=== PATIENT | female | born 1930 | race Two or more races ===

== ENCOUNTER 2017-12-26 05:52 | Inpatient (IN) | payer MEDICAID, MEDICARE ==
[~2017-12-26] VITALS: Ht 149.9 cm; Wt 74.8 kg
[2017-12-26 05:55] VITALS: BP 131/60
[2017-12-26] MEDS ORDERED: ASPIRIN EC81 MG ORAL (06:14)
[2017-12-26] MEDS ORDERED: EZETIMIBE10 MG PO (06:14)
[2017-12-26] MEDS ORDERED: OYSCO 500+D TA1 EAC1 PO (06:14)
[2017-12-26] MEDS ORDERED: HYDROCHLOROTHIA25 MG ORAL (06:14)
[2017-12-26] MEDS ORDERED: LOSARTAN POTASS50 MG ORAL (06:14)
[2017-12-26] MEDS ORDERED: METFORMIN HCL500 M1 ORAL (06:14)
--- NOTE | 2017-12-26 06:15 | Emergency Room Report ---
History of Present Illness General Chief Complaint: Chest Pain Source: Patient, EMS (Kay Parkinson M.D.) Present Illness HPI 87-year-old female, history of hypertension, history of CVA, p/w chest pain for one day. Chest pain started while sleeping. Localized to substernal area, no radiation to back or other areas, sharp in nature. EMS gave her one spray of nitroglycerin, upon arrival to the emergency room, patient states that chest pain has lessened. + SOB. Denies palpitations, diaphoresis, n/v. Denies fever, chills, cough, abd pain. Unknown last stress test (Kay Parkinson M.D.) Allergies: Coded Allergies: No Known Allergies (Unverified , 12/26/17) Patient History Past Medical History: see triage record Past Surgical History: none Pertinent Family History: none Last Menstrual Period: Na Now: No Reviewed Nursing Documentation: PMH: Agreed, PSxH: Agreed (aKy Parkinson M.D. ) Nursing Documentation-PMH Hx Hypertension: Yes (Kay Parkinson M.D.) Review of Systems All Other Systems: negative except mentioned in HPI (Kay Parkinson M.D.) Physical Exam Vital Signs Date Time Temp Pulse Resp B/P (MAP) Pulse Ox O2 Delivery O2 Flow Rate FiO2 12/26/17 05:58 97.4 88 18 123/61 99 Room Air 97.3 Sp02 EP Interpretation: reviewed, normal General Appearance: alert, moderate distress Head: normocephalic, atraumatic Eyes: bilateral eye normal inspection, bilateral eye PERRL, bilateral eye EOMI ENT: normal ENT inspection, normal pharynx, normal voice, moist mucus membranes Neck: normal inspection, full range of motion, supple Respiratory: normal inspection, lungs clear, normal breath sounds, no respiratory distress, no retraction, no wheezing, speaking full sentences, chest symmetrical Cardiovascular #1: normal inspection, regular rate, rhythm, normal capillary refill Cardiovascular #2: 2+ radial (R), 2+ radial (L) Gastrointestinal: normal inspection, non tender, soft, non-distended, no guarding Musculoskeletal: normal inspection, back normal, normal range of motion, non- tender Neurologic: normal inspection, alert, oriented x3, responsive, motor strength/ tone normal, sensory intact, normal gait, speech normal Psychiatric: other - poor historian Skin: normal inspection, normal color, no rash, warm/dry, well hydrated, normal turgor (Kay Parkinson M.D.) Medical Decision Making Diagnostic Impression: Primary Impression: ACS (acute coronary syndrome) ER Course 87-year-old female with chest pain DDX: ACS vs. CHF vs. pneumonia vs. gastritis/GERD vs. pneumothorax Plan: IV access, obtain labs including troponin, EKG, CXR ASA ER course: Patient was treated with ASA. Patient has remained on a monitor, HD stable, chest pain improved. Disposition: Signed out to Dr Arciniega 87 yo F with cp -pending labs -anticipate admission Please note that this Emergency Department Report was dictated using Eniramhandicapped teacher technology software, occasionally this can lead to erroneous entry secondary to interpretation by the dictation equipment. EKG Diagnostic Results EP Interpretation: Yes Rate: normal Rhythm: NSR ST Segments: Q waves inferior leads ASA given to patient: Yes Rhythm Strip EP Interpretation: Yes Rate: 80 Rhythm: NSR, no PVCs, no ectopy (Kay Parkinson M.D.) ER Course Hospital Course 87-year-old female presents ED complaining of chest pain. Differential diagnoses include: CA/unstable angina, contusion, muscle strain, PTX, rib fracture Clinical course patient initialy seen and evaluated by Dr Parkinson; please see her note for full history and physical labs reviewed- no leukocytosis, hb/hct stable, electrolytes ok, trop negative EKG - NSR, no acute ischemic changes interpreted by me Chest x-ray- no acute process given asa in ED Case discussed with Dr. Hurtado and he agreed to accept the patient to his service for further care and support I. I feel this is a highly complex case requiring extensive working including EKG/Rhythm strip, Xray/CT/US, Blood/urine lab work, repeat exams while in ED, and administration of strong opiates/narcotics for pain control, admission to hospital or close patient follow up. Diagnosis - ACS admitted to telemetry in serious condition Labs Test 12/26/17 06:00 12/26/17 06:53 White Blood Count 6.2 K/UL (4.8-10.8) Red Blood Count 4.19 M/UL (4.20-5.40) Hemoglobin 13.7 G/DL (12.0-16.0) Hematocrit 38.8 % (37.0-47.0) Mean Corpuscular Volume 93 FL (80-99) Mean Corpuscular Hemoglobin 32.6 PG (27.0-31.0) Mean Corpuscular Hemoglobin Concent 35.2 G/DL (32.0-36.0) Red Cell Distribution Width 10.7 % (11.6-14.8) Platelet Count 162 K/UL (150-450) Mean Platelet Volume 9.1 FL (6.5-10.1) Neutrophils (%) (Auto) 53.5 % (45.0-75.0) Lymphocytes (%) (Auto) 36.9 % (20.0-45.0) Monocytes (%) (Auto) 6.1 % (1.0-10.0) Eosinophils (%) (Auto) 2.4 % (0.0-3.0) Basophils (%) (Auto) 1.1 % (0.0-2.0) Sodium Level 131 MMOL/L (136-145) Potassium Level 4.1 MMOL/L (3.5-5.1) Chloride Level 95 MMOL/L (98-107) Carbon Dioxide Level 27 MMOL/L (21-32) Anion Gap 9 mmol/L (5-15) Blood Urea Nitrogen 16 mg/dL (7-18) Creatinine 0.8 MG/DL (0.55-1.30) Estimat Glomerular Filtration Rate mL/min (>60) Glucose Level 127 MG/DL (74-106) Calcium Level 9.9 MG/DL (8.5-10.1) Total Bilirubin 0.8 MG/DL (0.2-1.0) Aspartate Amino Transf (AST/SGOT) 31 U/L (15-37) Alanine Aminotransferase (ALT/SGPT) 48 U/L (12-78) Alkaline Phosphatase 90 U/L (46-116) Troponin I 0.000 ng/mL (0.000-0.056) Pro-B-Type Natriuretic Peptide 64 pg/mL (0-125) Total Protein 7.5 G/DL (6.4-8.2) Albumin 3.5 G/DL (3.4-5.0) Globulin 4.0 g/dL Albumin/Globulin Ratio 0.9 (1.0-2.7) Urine Color Pale yellow Urine Appearance Clear Urine pH 6.5 (4.5-8.0) Urine Specific [place] 1.010 (1.005-1.035) Urine Protein Negative (NEGATIVE) Urine Glucose (UA) Negative (NEGATIVE) Urine Ketones Negative (NEGATIVE) Urine Occult Blood Negative (NEGATIVE) Urine Nitrite Negative (NEGATIVE) Urine Bilirubin Negative (NEGATIVE) Urine Urobilinogen Normal MG/DL (0.0-1.0) Urine Leukocyte Esterase 1+ (NEGATIVE) Urine RBC 0-2 /HPF (0 - 2) Urine WBC 2-4 /HPF (0 - 2) Urine Squamous Epithelial Cells Few /LPF (NONE/OCC) Urine Bacteria Occasional /HPF (NONE) (AP ARCINIEGA M.D.) EKG Diagnostic Results Rate: normal Rhythm: NSR ST Segments: no acute changes ASA given to the pt in ED: Yes (AP ARCINIEGA M.D.) Rhythm Strip Diag. Results EP Interpretation: yes Rhythm: NSR, no PVC's, no ectopy (AP ARCINIEGA M.D.) Chest X-Ray Diagnostic Results Chest X-Ray Diagnostic Results : Chest X-Ray Ordered: Yes # of Views/Limited/Complete: 1 View Indication: Chest Pain EP Interpretation: Yes Interpretation: no consolidation, no effusion, no pneumothorax, no acute cardiopulmonary disease Impression: No acute disease Electronically Signed by: Electronically signed by Ap Arciniega MD (AP ARCINIEGA M.D.) Last Vital Signs Date Time Temp Pulse Resp B/P (MAP) Pulse Ox O2 Delivery O2 Flow Rate FiO2 12/26/17 05:58 97.4 88 18 123/61 99 Room Air 97.3 (Kay Parkinson M.D.) Status: improved (AP ARCINIEGA M.D.) Disposition: ADMITTED INPATIENT Condition: Serious Kay Parkinson M.D. Dec 26, 2017 06:15 AP ARCINIEGA M.D. Dec 26, 2017 08:14
[2017-12-26 06:22] LABS: BASOPHILS % (AUTO) 1.1 % (0.0-2.0); EOSINOPHILS % (AUTO) 2.4 % (0.0-3.0); HEMATOCRIT 38.8 % (37.0-47.0); HEMOGLOBIN 13.7 G/DL (12.0-16.0); LYMPHOCYTES % (AUTO) 36.9 % (20.0-45.0); MEAN CORPUSCULAR VOLUME 93 FL (80-99); MONOCYTES % (AUTO) 6.1 % (1.0-10.0); NEUTROPHILS % (AUTO) 53.5 % (45.0-75.0); PLATELET COUNT 162 K/UL (150-450); RED BLOOD COUNT 4.19 M/UL (4.20-5.40); RED CELL DISTRIBUTION WIDTH 10.7 % (11.6-14.8); WHITE BLOOD COUNT 6.2 K/UL (4.8-10.8)
[2017-12-26 06:32] LABS: ANION GAP 9 mmol/L (5-15); BLOOD UREA NITROGEN 16 mg/dL (7-18); CALCIUM 9.9 MG/DL (8.5-10.1); CARBON DIOXIDE 27 MMOL/L (21-32); CHLORIDE 95 MMOL/L (98-107); CREATININE 0.8 MG/DL (0.55-1.30); POTASSIUM 4.1 MMOL/L (3.5-5.1); SODIUM 131 MMOL/L (136-145)
[2017-12-26 06:43] LABS: ALANINE AMINOTRANSFERASE 48 U/L (12-78); ALBUMIN 3.5 G/DL (3.4-5.0); ALBUMIN/GLOBULIN RATIO 0.9 (1.0-2.7); ALKALINE PHOSPHATASE 90 U/L (46-116); ASPARTATE AMINO TRANSFERASE 31 U/L (15-37); BILIRUBIN,TOTAL 0.8 MG/DL (0.2-1.0)
[2017-12-26 07:15] VITALS: BP 116/67
[2017-12-26 07:32] LABS: APPEARANCE,URINE CLEAR; BILIRUBIN, URINE NEGATIVE (NEGATIVE); COLOR,URINE PALE YELLOW; GLUCOSE, URINE (UA) NEGATIVE (NEGATIVE); KETONES,URINE NEGATIVE (NEGATIVE); LEUKOCYTE ESTERASE ,URINE 1+ (NEGATIVE); NITRITE,URINE NEGATIVE (NEGATIVE); PH,URINE 6.5 (4.5-8.0); PROTEIN,URINE NEGATIVE (NEGATIVE); UROBILINOGEN,URINE NORMAL MG/DL (0.0-1.0)
[2017-12-26] MEDS ORDERED: Enalaprilat 2.5mg/2ml Inj IV PRN (10:15)
[2017-12-26] MEDS ORDERED: Albuterol/Ipratropium 3ml neb HHN PRN (10:15)
[2017-12-26] MEDS ORDERED: Nitroglycerin Subl 0.4mg tab SL PRN (10:15)
[2017-12-26] MEDS ORDERED: Morphine Sulfate 2mg/ml Inj IVP PRN (10:15)
[2017-12-26] MEDS ORDERED: Miralax 17gm pkt ORAL PRN (10:15)
[2017-12-26] MEDS ORDERED: dilTIAZem HCl 25mg/5ml Inj IV PRN (10:15)
[2017-12-26] MEDS ORDERED: Ketorolac 30mg Inj IV PRN (10:15)
--- NOTE | 2017-12-26 10:23 | Diagnostic Imaging Report ---
Indication: Chest pain Technique: One view of the chest Comparison: none Findings: Lungs and pleural spaces are clear. The heart is upper limits of normal in size. Aorta is elongated tortuous and calcified. The mediastinum is unremarkable Impression: No acute process
[2017-12-26] MEDS: NovoLOG Insulin Flexpen SUBQ SCH ×3 (11:30→21:00)
--- NOTE | 2017-12-26 13:09 | Cardiology Progress Note ---
Assessment/Plan Assessment/Plan The patient is seen and examined, full consult note will be dictated shortly. Objective Last 24 Hour Vital Signs Date Time Temp Pulse Resp B/P (MAP) Pulse Ox O2 Delivery O2 Flow Rate FiO2 12/26/17 09:40 98.0 70 13 115/57 97 Room Air 98.1 12/26/17 07:15 54 12 Room Air 12/26/17 07:15 98.1 54 12 116/67 100 Room Air 98.1 12/26/17 05:58 97.4 88 18 123/61 99 Room Air 97.3 12/26/17 05:55 74 16 Room Air 12/26/17 05:55 97.4 74 16 131/60 96 Room Air 97.4 Laboratory Tests Test 12/26/17 06:00 12/26/17 06:53 White Blood Count 6.2 K/UL (4.8-10.8) Red Blood Count 4.19 M/UL (4.20-5.40) L Hemoglobin 13.7 G/DL (12.0-16.0) Hematocrit 38.8 % (37.0-47.0) Mean Corpuscular Volume 93 FL (80-99) Mean Corpuscular Hemoglobin 32.6 PG (27.0-31.0) H Mean Corpuscular Hemoglobin Concent 35.2 G/DL (32.0-36.0) Red Cell Distribution Width 10.7 % (11.6-14.8) L Platelet Count 162 K/UL (150-450) Mean Platelet Volume 9.1 FL (6.5-10.1) Neutrophils (%) (Auto) 53.5 % (45.0-75.0) Lymphocytes (%) (Auto) 36.9 % (20.0-45.0) Monocytes (%) (Auto) 6.1 % (1.0-10.0) Eosinophils (%) (Auto) 2.4 % (0.0-3.0) Basophils (%) (Auto) 1.1 % (0.0-2.0) Sodium Level 131 MMOL/L (136-145) L Potassium Level 4.1 MMOL/L (3.5-5.1) Chloride Level 95 MMOL/L (98-107) L Carbon Dioxide Level 27 MMOL/L (21-32) Anion Gap 9 mmol/L (5-15) Blood Urea Nitrogen 16 mg/dL (7-18) Creatinine 0.8 MG/DL (0.55-1.30) Estimat Glomerular Filtration Rate mL/min (>60) Glucose Level 127 MG/DL (74-106) H Calcium Level 9.9 MG/DL (8.5-10.1) Total Bilirubin 0.8 MG/DL (0.2-1.0) Aspartate Amino Transf (AST/SGOT) 31 U/L (15-37) Alanine Aminotransferase (ALT/SGPT) 48 U/L (12-78) Alkaline Phosphatase 90 U/L (46-116) Troponin I 0.000 ng/mL (0.000-0.056) Pro-B-Type Natriuretic Peptide 64 pg/mL (0-125) Total Protein 7.5 G/DL (6.4-8.2) Albumin 3.5 G/DL (3.4-5.0) Globulin 4.0 g/dL Albumin/Globulin Ratio 0.9 (1.0-2.7) L Urine Color Pale yellow Urine Appearance Clear Urine pH 6.5 (4.5-8.0) Urine Specific [place] 1.010 (1.005-1.035) Urine Protein Negative (NEGATIVE) Urine Glucose (UA) Negative (NEGATIVE) Urine Ketones Negative (NEGATIVE) Urine Occult Blood Negative (NEGATIVE) Urine Nitrite Negative (NEGATIVE) Urine Bilirubin Negative (NEGATIVE) Urine Urobilinogen Normal MG/DL (0.0-1.0) Urine Leukocyte Esterase 1+ (NEGATIVE) H Urine RBC 0-2 /HPF (0 - 2) Urine WBC 2-4 /HPF (0 - 2) Urine Squamous Epithelial Cells Few /LPF (NONE/OCC) Urine Bacteria Occasional /HPF (NONE) ZION HALLMAN Dec 26, 2017 13:09
--- NOTE | 2017-12-26 13:27 | Consultation ---
History of Present Illness General Date patient seen: Dec 26, 2017 Chief Complaint: Chest Pain Present Illness HPI 87-year-old female with history of DM, hypertension, CVA, brought in by paramedics with CC of chest pain for one day. Chest pain started while sleeping. Localized to substernal area, no radiation to back or other areas, sharp in nature. EMS gave her one spray of nitroglycerin, upon arrival to the emergency room, patient states that chest pain has lessened. she was still c/o SOB on arrival. She is admitted to telemetry for further management. Allergies: Coded Allergies: No Known Allergies (Unverified , 12/26/17) Medication History Scheduled Aspirin Ec* (Aspirin Ec*), 81 MG ORAL DAILY, (Reported) Hydrochlorothiazide* (Hydrochlorothiazide*), 25 MG ORAL DAILY, (Reported) Losartan Potassium* (Losartan Potassium*), 50 MG ORAL DAILY, (Reported) Metformin Hcl* (Metformin Hcl*), 500 MG ORAL TWICE A DAY, (Reported) Miscellaneous Medications Calcium Carbonate/Vitamin D3 ([place] 500+D Tablet), 1 EACH PO, (Reported) Ezetimibe (Ezetimibe), 10 MG PO, (Reported) Patient History Healthcare decision maker Janet Saleem Resuscitation status Full Code Advanced Directive on File Past Medical/Surgical History Past Medical/Surgical History: (1) Diabetes mellitus (2) HTN (hypertension) Review of Systems All Other Systems: negative except mentioned in HPI Physical Exam General Appearance: WD/WN, no apparent distress Lines, tubes and drains: peripheral HEENT: normocephalic, atraumatic Neck: non-tender, supple Respiratory/Chest: chest wall non-tender, lungs clear Cardiovascular/Chest: normal peripheral pulses, normal rate Abdomen: normal bowel sounds, non tender Genitourinary/Rectal: normal genital exam Skin Exam: normal pigmentation Last 24 Hour Vital Signs Date Time Temp Pulse Resp B/P (MAP) Pulse Ox O2 Delivery O2 Flow Rate FiO2 12/26/17 09:40 98.0 70 13 115/57 97 Room Air 98.1 12/26/17 07:15 54 12 Room Air 12/26/17 07:15 98.1 54 12 116/67 100 Room Air 98.1 12/26/17 05:58 97.4 88 18 123/61 99 Room Air 97.3 12/26/17 05:55 74 16 Room Air 12/26/17 05:55 97.4 74 16 131/60 96 Room Air 97.4 Laboratory Tests Test 12/26/17 06:00 12/26/17 06:53 White Blood Count 6.2 K/UL (4.8-10.8) Red Blood Count 4.19 M/UL (4.20-5.40) L Hemoglobin 13.7 G/DL (12.0-16.0) Hematocrit 38.8 % (37.0-47.0) Mean Corpuscular Volume 93 FL (80-99) Mean Corpuscular Hemoglobin 32.6 PG (27.0-31.0) H Mean Corpuscular Hemoglobin Concent 35.2 G/DL (32.0-36.0) Red Cell Distribution Width 10.7 % (11.6-14.8) L Platelet Count 162 K/UL (150-450) Mean Platelet Volume 9.1 FL (6.5-10.1) Neutrophils (%) (Auto) 53.5 % (45.0-75.0) Lymphocytes (%) (Auto) 36.9 % (20.0-45.0) Monocytes (%) (Auto) 6.1 % (1.0-10.0) Eosinophils (%) (Auto) 2.4 % (0.0-3.0) Basophils (%) (Auto) 1.1 % (0.0-2.0) Sodium Level 131 MMOL/L (136-145) L Potassium Level 4.1 MMOL/L (3.5-5.1) Chloride Level 95 MMOL/L (98-107) L Carbon Dioxide Level 27 MMOL/L (21-32) Anion Gap 9 mmol/L (5-15) Blood Urea Nitrogen 16 mg/dL (7-18) Creatinine 0.8 MG/DL (0.55-1.30) Estimat Glomerular Filtration Rate mL/min (>60) Glucose Level 127 MG/DL (74-106) H Calcium Level 9.9 MG/DL (8.5-10.1) Total Bilirubin 0.8 MG/DL (0.2-1.0) Aspartate Amino Transf (AST/SGOT) 31 U/L (15-37) Alanine Aminotransferase (ALT/SGPT) 48 U/L (12-78) Alkaline Phosphatase 90 U/L (46-116) Troponin I 0.000 ng/mL (0.000-0.056) Pro-B-Type Natriuretic Peptide 64 pg/mL (0-125) Total Protein 7.5 G/DL (6.4-8.2) Albumin 3.5 G/DL (3.4-5.0) Globulin 4.0 g/dL Albumin/Globulin Ratio 0.9 (1.0-2.7) L Urine Color Pale yellow Urine Appearance Clear Urine pH 6.5 (4.5-8.0) Urine Specific [place] 1.010 (1.005-1.035) Urine Protein Negative (NEGATIVE) Urine Glucose (UA) Negative (NEGATIVE) Urine Ketones Negative (NEGATIVE) Urine Occult Blood Negative (NEGATIVE) Urine Nitrite Negative (NEGATIVE) Urine Bilirubin Negative (NEGATIVE) Urine Urobilinogen Normal MG/DL (0.0-1.0) Urine Leukocyte Esterase 1+ (NEGATIVE) H Urine RBC 0-2 /HPF (0 - 2) Urine WBC 2-4 /HPF (0 - 2) Urine Squamous Epithelial Cells Few /LPF (NONE/OCC) Urine Bacteria Occasional /HPF (NONE) Height (Feet): 4 Height (Inches): 11.00 Weight (Pounds): 165 Medications Current Medications Medications (Trade) Dose Ordered Sig/Bella Route PRN Reason Start Time Stop Time Status Last Admin Dose Admin Acetaminophen (Tylenol) 650 mg Q4H PRN ORAL FEVER 12/26/17 10:15 01/25/18 10:14 Albuterol/ Ipratropium (Albuterol/ Ipratropium) 3 ml EVERY 4 HOURS PRN HHN Shortness of Breath 12/26/17 10:15 12/31/17 10:14 Aspirin (ASA) 162 mg DAILY ORAL 12/27/17 09:00 01/26/18 08:59 Dextrose (Dextrose 50%) STAT PRN IV Hypoglycemia 12/26/17 10:15 01/25/18 10:14 Diltiazem HCl (Cardizem) 10 mg EVERY HOUR PRN IV heart rate more than 120, 12/26/17 10:15 01/25/18 10:14 Enalaprilat (Vasotec) 2.5 mg EVERY 6 HOURS PRN IV sbp more than 160 12/26/17 10:15 01/25/18 10:14 Heparin Sodium (Porcine) (Heparin 5000 units/ml) 5,000 units EVERY 8 HOURS SUBQ 12/26/17 14:00 01/25/18 13:59 Insulin Aspart (NovoLOG) BEFORE MEALS AND HS SUBQ 12/26/17 11:30 01/25/18 11:29 Ketorolac Tromethamine (Toradol 30mg) 30 mg Q6HR PRN IV moderate pain ( 4-6) 12/26/17 10:15 12/31/17 10:14 Losartan Potassium (Cozaar) 50 mg DAILY ORAL 12/27/17 09:00 01/26/18 08:59 Morphine Sulfate (Morphine Sulfate) 2 mg EVERY 4 HOURS PRN IVP severe Pain (Pain Scale 7-10) 12/26/17 10:15 01/02/18 10:14 Nitroglycerin (Ntg) 0.4 mg Q5M PRN SL Prn Chest Pain 12/26/17 10:15 01/25/18 10:14 Ondansetron HCl (Zofran) 4 mg Q6H PRN IVP Nausea & Vomiting 12/26/17 10:15 01/25/18 10:14 Pantoprazole (Protonix) 40 mg DAILY ORAL 12/27/17 09:00 01/26/18 08:59 Polyethylene Glycol (Miralax) 17 gm DAILYPRN PRN ORAL Constipation 12/26/17 10:15 01/25/18 10:14 Temazepam (Restoril) 15 mg HSPRN PRN ORAL Insomnia 12/26/17 10:15 01/02/18 10:14 Assessment/Plan Problem List: (1) ACS (acute coronary syndrome) ICD Codes: I24.9 - Acute ischemic heart disease, unspecified SNOMED: 122185636 (2) HTN (hypertension) ICD Codes: I10 - Essential (primary) hypertension SNOMED: 85714429 (3) Diabetes mellitus ICD Codes: E11.9 - Type 2 diabetes mellitus without complications SNOMED: 45524067 Assessment/Plan serial ekg, troponin, echo cardio evaluation my need GI evaluation for dysphagia sliding scale diabetic diet. monitor BP CALVIN TAM Dec 26, 2017 13:27
[2017-12-26] MEDS: Heparin 5000 units/ml inj SUBQ SCH ×2 (14:40→21:11)
--- NOTE | 2017-12-26 17:51 | Cardiac Electrophysiology PN ---
Subjective Subjective EP consult dictated [id number] Objective Last 24 Hour Vital Signs Date Time Temp Pulse Resp B/P (MAP) Pulse Ox O2 Delivery O2 Flow Rate FiO2 12/26/17 12:00 76 12/26/17 12:00 76 12/26/17 09:40 98.0 70 13 115/57 97 Room Air 98.1 12/26/17 07:15 54 12 Room Air 12/26/17 07:15 98.1 54 12 116/67 100 Room Air 98.1 12/26/17 05:58 97.4 88 18 123/61 99 Room Air 97.3 12/26/17 05:55 74 16 Room Air 12/26/17 05:55 97.4 74 16 131/60 96 Room Air 97.4 Laboratory Tests Test 12/26/17 06:00 12/26/17 06:53 White Blood Count 6.2 K/UL (4.8-10.8) Red Blood Count 4.19 M/UL (4.20-5.40) L Hemoglobin 13.7 G/DL (12.0-16.0) Hematocrit 38.8 % (37.0-47.0) Mean Corpuscular Volume 93 FL (80-99) Mean Corpuscular Hemoglobin 32.6 PG (27.0-31.0) H Mean Corpuscular Hemoglobin Concent 35.2 G/DL (32.0-36.0) Red Cell Distribution Width 10.7 % (11.6-14.8) L Platelet Count 162 K/UL (150-450) Mean Platelet Volume 9.1 FL (6.5-10.1) Neutrophils (%) (Auto) 53.5 % (45.0-75.0) Lymphocytes (%) (Auto) 36.9 % (20.0-45.0) Monocytes (%) (Auto) 6.1 % (1.0-10.0) Eosinophils (%) (Auto) 2.4 % (0.0-3.0) Basophils (%) (Auto) 1.1 % (0.0-2.0) Sodium Level 131 MMOL/L (136-145) L Potassium Level 4.1 MMOL/L (3.5-5.1) Chloride Level 95 MMOL/L (98-107) L Carbon Dioxide Level 27 MMOL/L (21-32) Anion Gap 9 mmol/L (5-15) Blood Urea Nitrogen 16 mg/dL (7-18) Creatinine 0.8 MG/DL (0.55-1.30) Estimat Glomerular Filtration Rate mL/min (>60) Glucose Level 127 MG/DL (74-106) H Calcium Level 9.9 MG/DL (8.5-10.1) Total Bilirubin 0.8 MG/DL (0.2-1.0) Aspartate Amino Transf (AST/SGOT) 31 U/L (15-37) Alanine Aminotransferase (ALT/SGPT) 48 U/L (12-78) Alkaline Phosphatase 90 U/L (46-116) Troponin I 0.000 ng/mL (0.000-0.056) Pro-B-Type Natriuretic Peptide 64 pg/mL (0-125) Total Protein 7.5 G/DL (6.4-8.2) Albumin 3.5 G/DL (3.4-5.0) Globulin 4.0 g/dL Albumin/Globulin Ratio 0.9 (1.0-2.7) L Urine Color Pale yellow Urine Appearance Clear Urine pH 6.5 (4.5-8.0) Urine Specific [place] 1.010 (1.005-1.035) Urine Protein Negative (NEGATIVE) Urine Glucose (UA) Negative (NEGATIVE) Urine Ketones Negative (NEGATIVE) Urine Occult Blood Negative (NEGATIVE) Urine Nitrite Negative (NEGATIVE) Urine Bilirubin Negative (NEGATIVE) Urine Urobilinogen Normal MG/DL (0.0-1.0) Urine Leukocyte Esterase 1+ (NEGATIVE) H Urine RBC 0-2 /HPF (0 - 2) Urine WBC 2-4 /HPF (0 - 2) Urine Squamous Epithelial Cells Few /LPF (NONE/OCC) Urine Bacteria Occasional /HPF (NONE) ZION PELAEZ Dec 26, 2017 17:51
[2017-12-26 20:00] VITALS: BP 109/65
--- NOTE | 2017-12-26 20:02 | Consultation ---
DATE OF CONSULTATION: 12/26/2017 CARDIOLOGY CONSULTATION REFERRING PHYSICIAN: Glenn Hurtado D.O. REASON FOR CONSULTATION: Management of chest pain. HISTORY OF PRESENT ILLNESS: The patient is a very unfortunate 87-year-old female, who presents to the hospital with complaints of chest pain, which appears to be pleuritic in nature with deep inspiration just about a day. The patient's chest pain started while she was sleeping affecting mostly the left precordial area worse when she sits up. She has associated shortness of breath. Initial chest x-ray in this hospital showed no acute cardiopulmonary disease. Vital signs on arrival to the hospital, blood pressure 123/61 and heart rate of 88. 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 The patient was admitted to telemetry for further evaluation and management. I was called by Dr. Hurtado to see the patient in Cardiology consultation. PAST MEDICAL HISTORY: Hypertension and history of CVA. Also, history of diabetes mellitus. PAST SURGICAL HISTORY: None. MEDICATIONS: List of medication including aspirin 81 mg p.o. daily, calcium carbonate and vitamin D3 combination one tablet daily, ezetimibe 10 mg p.o. daily, hydrochlorothiazide 25 mg p.o. daily, losartan 50 mg p.o. daily, and metformin 500 mg twice a day. SOCIAL HISTORY: Denies any tobacco, alcohol or illicit drug use. FAMILY HISTORY: No premature coronary artery disease in first-degree relatives. REVIEW OF SYSTEMS: HEENT: Denies any headache, diplopia, or blurred vision. CONSTITUTIONAL: Denies any fever, chills, night sweats, or weight loss. CARDIOVASCULAR: Chest pain and shortness of breath as mentioned above. Denies any PND, orthopnea, leg swelling, syncope, or palpitation. PULMONARY: Denies any cough, hemoptysis, or wheezing. GASTROINTESTINAL: Denies any nausea, vomiting, diarrhea, constipation, abdominal pain, or GI bleed. GENITOURINARY: Denies any hematuria, dysuria, incontinence. NEUROLOGIC: Denies any motor dysfunction, sensory deficit, or altered speech. MUSCULOSKELETAL: The patient is nonambulatory due to prior stroke. PHYSICAL EXAMINATION: GENERAL: The patient is a very unfortunate 87-year-old female, in no apparent respiratory distress. Alert and oriented x4. VITAL SIGNS: Blood pressure is 123/61, respirations of 18, pulse of 88, O2 saturation 99% on room air, and temperature 97.4 degrees Fahrenheit. HEENT: Atraumatic and normocephalic. Anicteric. Pupils are equal, round, and reactive to light and accommodation. Extraocular muscles intact. NECK: JVP less than 5 cm. No carotid bruit. Carotid upstrokes 2+ bilaterally. CARDIOVASCULAR: Normal S1 and S2. Regular rate and rhythm. No murmurs, gallops, or rubs. PMI is at fourth intercostal space at the midclavicular line. LUNGS: Clear to auscultation bilaterally. ABDOMEN: Soft, nontender, and nondistended. No hepatosplenomegaly. Positive bowel sounds. EXTREMITIES: No evidence of edema, clubbing, or cyanosis. LABORATORY AND DIAGNOSTIC DATA: Sodium 131, potassium is 4.1, chloride 95, bicarbonate 27, BUN of 16, creatinine 0.8 and glucose 127. Calcium is 9.9. Troponin I is zero. ProBNP was 64. WBC was 6.2, hemoglobin of 13.7, hematocrit of 38.8, and platelet count is 162. 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 Normal QT interval. No ST and T-wave abnormalities. Chest x-ray showed no acute cardiopulmonary disease. ASSESSMENT AND PLAN: The patient is a very unfortunate 87-year-old female seen in Cardiology consultation at the request of Dr Hurtado. 1. Atypical chest pain, pleuritic in nature. Given the patient's history of hypertension and diabetes mellitus, I will probably have to proceed with pharmacological nuclear stress test to rule out obstructive coronary artery disease. This study will be ordered. Further therapeutic and diagnostic decision will be based on results of that study. I will also like to order 2D echocardiography for assessment of left ventricular systolic and diastolic function. 2. History of diabetes mellitus. The patient will require to be on aspirin and statins. 3. History of hypertension. The patient will be continued on Stephon, ARB. We will withhold amlodipine and beta-makenna in preparation for stress test. 4. Dr. Osuna will cover me from 12/27/2017. I would like to thank Dr. Hurtado, for the courtesy of this consultation. Cory Wayne M.D. DR: JERARDO JOB#: [id number] CC:
--- NOTE | 2017-12-26 20:47 | History and Physical Report ---
DATE OF ADMISSION: 12/26/2017 TIME SEEN: 2 p.m. CONSULTANTS: 1. Cam Adorno M.D. 2. Cory Wayne M.D. CHIEF COMPLAINT: Shortness of breath, chest pain and pressure. BRIEF HISTORY: The patient is an 87-year-old female who lives at home, presents this morning with history of shortness of breath and chest pain. It was pressure like, substernal, radiating to the back. No loss of consciousness. No nausea, vomiting, or diarrhea. No dizziness. Slightly improved, now in bed. The patient came to [facility], diagnosed with above, admitted to telemetry floor. Currently, slightly anxious in bed, oriented x2, in no acute distress. PAST MEDICAL HISTORY: Hypertension and borderline diabetes. PAST SURGICAL HISTORY: None. MEDICATIONS: Cozaar, aspirin, Protonix, heparin, NovoLog, albuterol, nitroglycerin, Tylenol, Toradol, morphine, Zofran, Restoril, Vasotec and Cardizem. ALLERGIES: Denies. SOCIAL HISTORY: No smoking. No alcohol. No intravenous drug abuse. FAMILY HISTORY: Noncontributory. PHYSICAL EXAMINATION: GENERAL: Slightly anxious in bed, oriented x2, in no acute distress. VITAL SIGNS: Show temperature is 98 degrees, pulse 70, respirations 13, and blood pressure 115/57. CARDIOVASCULAR: No murmur. LUNGS: Distant and clear. ABDOMEN: Bowel sounds positive. Nontender and nondistended. EXTREMITIES: No cyanosis, clubbing or edema. NEUROLOGIC: The patient moves all extremities, slightly weak. LABORATORY AND DIAGNOSTIC DATA: Show CBC is normal. BMP shows sodium 131, chloride 95 and glucose 127. Troponin 0.00, otherwise normal. Urinalysis shows 1+ leukocyte esterase. ASSESSMENT: 1. Acute coronary syndrome. 2. Shortness of breath. 3. Urinary tract infection. 4. Hypertension. 5. Borderline diabetes. PLAN: 1. Blood pressure, blood sugar, and pain control. 2. Dietary followup. 3. Troponin q.8 h. x3. 4. O2 and pulmonary treatment. 5. Antibiotics per Infectious Diseases. 6. Resume home medications. 7. OT/PT and dietary evaluation. 8. CBC and BMP in the morning. 9. We will continue to follow this patient medically. 10. Dr. Adorno, Dr. Wayne and Dr. Shannon to consult. Glenn Hurtado D.O. DR: Aaron JOB#: [id number] CC:
--- NOTE | 2017-12-26 21:47 | Consultation ---
DATE OF CONSULTATION: 12/26/2017 CARDIAC ELECTROPHYSIOLOGY CONSULTATION CONSULTING PHYSICIAN: Cory Matson M.D. REFERRING PHYSICIAN: Glenn Hurtado D.O. REASON FOR CONSULTATION: Irregular heartbeat. 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 The EMS gave her nitroglycerin and chest pain was improved even though still was short of breath. The patient was admitted and Cardiology consultation was recommended. The patient also on telemetry had significant cardiac arrhythmia and electrophysiology consultation was obtained for further evaluation. REVIEW OF SYSTEMS: Negative other than what was mentioned in history of present illness. PAST MEDICAL HISTORY: 1. Hypertension. 2. Diabetes. MEDICATION: Include aspirin, hydrochlorothiazide, losartan, metformin. FAMILY HISTORY: Noncontributory. SOCIAL HISTORY: She lives at home. Does not smoke or drink alcohol. PHYSICAL EXAMINATION: VITAL SIGNS: Blood pressure is 151/57, pulse 70, respirations 18, and she is afebrile. HEAD AND NECK: Showed no JVD. LUNGS: Clear. CARDIOVASCULAR: Shows irregular S1 and S2 with no gallop or murmur. ABDOMEN: Soft. EXTREMITIES: No pitting edema. NEUROLOGIC: She has right hemiparesis. LABORATORY DATA: Show white count of 6.2, hemoglobin 13.7, hematocrit 38.8, and platelet count 162,000. Sodium 131, potassium 4.1, BUN of 16, creatinine 0.8, and glucose of 127. Troponin is negative. Her telemetry strip showed sinus rhythm with significant sinus arrhythmia, but no heart block, SVT, or atrial fibrillation. Lower extremity Doppler showed no evidence of DVT. EKG showed normal sinus rhythm with old inferior wall infarct. ASSESSMENT AND PLAN: 1. Cardiac arrhythmia. It is in the form of sinus arrhythmia. No evidence of atrial fibrillation, SVT, or ventricular tachycardia. We will watch the patient on telemetry and get an echocardiogram and thyroid function test. 2. Chest pain. First troponin is negative. We will completely rule out CT protocol. Echocardiogram has already been performed that showed ejection fraction of 65% to 70%. The patient may need nuclear stress test for further evaluation. 3. History of diabetes. 4. History of CVA. Thank you very much, Dr. Hurtado, for allowing me to participate in the care of this patient. Please do not hesitate to contact me for any questions regarding my evaluation. Cory Matson M.D. DR: Lane JOB#: [id number] CC:
[2017-12-27] VITALS: BP 132/54
[2017-12-27 04:00] VITALS: BP 124/67
[2017-12-27] MEDS: NovoLOG Insulin Flexpen SUBQ SCH ×4 (06:30→20:54)
[2017-12-27] MEDS: Heparin 5000 units/ml inj SUBQ SCH ×3 (06:49→20:54)
[2017-12-27 07:17] LABS: BASOPHILS % (AUTO) 0.9 % (0.0-2.0); EOSINOPHILS % (AUTO) 1.8 % (0.0-3.0); HEMATOCRIT 35.2 % (37.0-47.0); HEMOGLOBIN 12.5 G/DL (12.0-16.0); MEAN CORPUSCULAR VOLUME 93 FL (80-99); MONOCYTES % (AUTO) 7.3 % (1.0-10.0); NEUTROPHILS % (AUTO) 49.9 % (45.0-75.0); PLATELET COUNT 148 K/UL (150-450); RED BLOOD COUNT 3.81 M/UL (4.20-5.40); RED CELL DISTRIBUTION WIDTH 10.5 % (11.6-14.8); WHITE BLOOD COUNT 4.9 K/UL (4.8-10.8)
[2017-12-27 07:38] LABS: CHOLESTEROL 168 MG/DL (< 200); HDL CHOLESTEROL 58 MG/DL (40-60); TRIGLYCERIDES 105 MG/DL (30-150)
[2017-12-27 08:00] VITALS: BP_SYST 120; BP_SYST 135; BP_DIAS 61; BP_DIAS 69
[2017-12-27] MEDS: Aspirin Baby 81mg ORAL SCH (09:07)
[2017-12-27] MEDS: Losartan 50mg tab ORAL SCH (09:07)
--- NOTE | 2017-12-27 11:33 | Pulmonology Progress Note ---
Assessment/Plan Problems: (1) ACS (acute coronary syndrome) (2) HTN (hypertension) (3) Diabetes mellitus Assessment/Plan f/u stress test studies, first phase done already monitor bp sliding scale symptomatic treatment dc home if stress test is negative. dvt prophylaxis. Subjective ROS Limited/Unobtainable: No Allergies: Coded Allergies: No Known Allergies (Unverified , 12/26/17) Objective Last 24 Hour Vital Signs Date Time Temp Pulse Resp B/P (MAP) Pulse Ox O2 Delivery O2 Flow Rate FiO2 12/27/17 09:07 135/61 12/27/17 08:00 98.1 84 20 135/61 100 Room Air 98.1 12/27/17 08:00 87 12/27/17 07:50 87 18 Room Air 21 12/27/17 04:00 97.7 87 20 124/67 98 Room Air 97.7 12/27/17 04:00 88 12/27/17 00:00 94 12/27/17 00:00 97.9 89 20 132/54 93 Room Air 97.9 12/26/17 23:26 85 18 100 Room Air 21 12/26/17 23:18 83 20 98 Room Air 21 12/26/17 20:29 70 14 Room Air 12/26/17 20:00 98.1 96 22 109/65 100 Room Air 98.1 12/26/17 20:00 90 12/26/17 16:00 73 12/26/17 12:00 76 12/26/17 12:00 76 Intake and Output 12/26/17 12/27/17 19:00 07:00 Intake Total 500 ml Balance 500 ml Intake Oral 500 ml # Voids 4 2 Objective General Appearance: WD/WN, no apparent distress Lines, tubes and drains: peripheral HEENT: normocephalic, atraumatic Neck: non-tender, supple Respiratory/Chest: chest wall non-tender, lungs clear Cardiovascular/Chest: normal peripheral pulses, normal rate Abdomen: normal bowel sounds, non tender Genitourinary/Rectal: normal genital exam Skin Exam: normal pigmentation Laboratory Tests 12/27/17 06:23: White Blood Count 4.9, Red Blood Count 3.81L, Hemoglobin 12.5, Hematocrit 35.2L , Mean Corpuscular Volume 93, Mean Corpuscular Hemoglobin 32.9H, Mean Corpuscular Hemoglobin Concent 35.5, Red Cell Distribution Width 10.5L, Platelet Count 148L, Mean Platelet Volume 9.1, Neutrophils (%) (Auto) 49.9, Lymphocytes (%) (Auto) 40.0, Monocytes (%) (Auto) 7.3, Eosinophils (%) (Auto) 1.8, Basophils (%) (Auto) 0.9, Prothrombin Time 10.2, Prothromb Time International Ratio 1.0, Activated Partial Thromboplast Time 27, Troponin I 0.003, C-Reactive Protein, Quantitative < 0.4, Pro-B-Type Natriuretic Peptide 57 , Triglycerides Level 105, Cholesterol Level 168, LDL Cholesterol 98, HDL Cholesterol 58, Cholesterol/HDL Ratio 2.9L, Thyroid Stimulating Hormone (TSH) 1.667, Free Thyroxine 1.43 Current Medications Medications (Trade) Dose Ordered Sig/Bella Route PRN Reason Start Time Stop Time Status Last Admin Dose Admin Acetaminophen (Tylenol) 650 mg Q4H PRN ORAL FEVER 12/26/17 10:15 01/25/18 10:14 Albuterol/ Ipratropium (Albuterol/ Ipratropium) 3 ml EVERY 4 HOURS PRN HHN Shortness of Breath 12/26/17 10:15 12/31/17 10:14 12/26/17 23:17 Aspirin (ASA) 162 mg DAILY ORAL 12/27/17 09:00 01/26/18 08:59 12/27/17 09:07 Dextrose (Dextrose 50%) STAT PRN IV Hypoglycemia 12/26/17 10:15 01/25/18 10:14 Diltiazem HCl (Cardizem) 10 mg EVERY HOUR PRN IV heart rate more than 120, 12/26/17 10:15 01/25/18 10:14 Enalaprilat (Vasotec) 2.5 mg EVERY 6 HOURS PRN IV sbp more than 160 12/26/17 10:15 01/25/18 10:14 Heparin Sodium (Porcine) (Heparin 5000 units/ml) 5,000 units EVERY 8 HOURS SUBQ 12/26/17 14:00 01/25/18 13:59 12/27/17 06:49 Insulin Aspart (NovoLOG) BEFORE MEALS AND HS SUBQ 12/26/17 11:30 01/25/18 11:29 Ketorolac Tromethamine (Toradol 30mg) 30 mg Q6HR PRN IV moderate pain ( 4-6) 12/26/17 10:15 12/31/17 10:14 Losartan Potassium (Cozaar) 50 mg DAILY ORAL 12/27/17 09:00 01/26/18 08:59 12/27/17 09:07 Morphine Sulfate (Morphine Sulfate) 2 mg EVERY 4 HOURS PRN IVP severe Pain (Pain Scale 7-10) 12/26/17 10:15 01/02/18 10:14 Nitroglycerin (Ntg) 0.4 mg Q5M PRN SL Prn Chest Pain 12/26/17 10:15 01/25/18 10:14 Ondansetron HCl (Zofran) 4 mg Q6H PRN IVP Nausea & Vomiting 12/26/17 10:15 01/25/18 10:14 Pantoprazole (Protonix) 40 mg DAILY ORAL 12/27/17 09:00 01/26/18 08:59 12/27/17 09:07 Polyethylene Glycol (Miralax) 17 gm DAILYPRN PRN ORAL Constipation 12/26/17 10:15 01/25/18 10:14 Regadenoson (Lexiscan) 0.4 mg ONCE PRN IV Stress Test 12/27/17 13:00 12/27/17 19:00 Temazepam (Restoril) 15 mg HSPRN PRN ORAL Insomnia 12/26/17 10:15 01/02/18 10:14 CALVIN TAM Dec 27, 2017 11:33
[2017-12-27 12:00] VITALS: BP 137/61
--- NOTE | 2017-12-27 12:26 | General Progress Note ---
Assessment/Plan Problem List: (1) Diabetes mellitus ICD Codes: E11.9 - Type 2 diabetes mellitus without complications SNOMED: 57996780 (2) HTN (hypertension) ICD Codes: I10 - Essential (primary) hypertension SNOMED: 56220334 (3) ACS (acute coronary syndrome) ICD Codes: I24.9 - Acute ischemic heart disease, unspecified SNOMED: 151611606 Status: unchanged Assessment/Plan oe pulm tx abx bp bs control pending stress test cbc bmp am Subjective Respiratory: Reports: shortness of breath Allergies: Coded Allergies: No Known Allergies (Unverified , 12/26/17) All Systems: reviewed and negative except above Subjective sleepy in bed Objective Last 24 Hour Vital Signs Date Time Temp Pulse Resp B/P (MAP) Pulse Ox O2 Delivery O2 Flow Rate FiO2 12/27/17 09:07 135/61 12/27/17 08:00 98.1 84 20 135/61 100 Room Air 98.1 12/27/17 08:00 87 12/27/17 07:50 87 18 Room Air 21 12/27/17 04:00 97.7 87 20 124/67 98 Room Air 97.7 12/27/17 04:00 88 12/27/17 00:00 94 12/27/17 00:00 97.9 89 20 132/54 93 Room Air 97.9 12/26/17 23:26 85 18 100 Room Air 21 12/26/17 23:18 83 20 98 Room Air 21 12/26/17 20:29 70 14 Room Air 12/26/17 20:00 98.1 96 22 109/65 100 Room Air 98.1 12/26/17 20:00 90 12/26/17 16:00 73 Intake and Output 12/26/17 12/27/17 19:00 07:00 Intake Total 500 ml Balance 500 ml Intake Oral 500 ml # Voids 4 2 Laboratory Tests 12/27/17 06:23: White Blood Count 4.9, Red Blood Count 3.81L, Hemoglobin 12.5, Hematocrit 35.2L , Mean Corpuscular Volume 93, Mean Corpuscular Hemoglobin 32.9H, Mean Corpuscular Hemoglobin Concent 35.5, Red Cell Distribution Width 10.5L, Platelet Count 148L, Mean Platelet Volume 9.1, Neutrophils (%) (Auto) 49.9, Lymphocytes (%) (Auto) 40.0, Monocytes (%) (Auto) 7.3, Eosinophils (%) (Auto) 1.8, Basophils (%) (Auto) 0.9, Prothrombin Time 10.2, Prothromb Time International Ratio 1.0, Activated Partial Thromboplast Time 27, Troponin I 0.003, C-Reactive Protein, Quantitative < 0.4, Pro-B-Type Natriuretic Peptide 57 , Triglycerides Level 105, Cholesterol Level 168, LDL Cholesterol 98, HDL Cholesterol 58, Cholesterol/HDL Ratio 2.9L, Thyroid Stimulating Hormone (TSH) 1.667, Free Thyroxine 1.43 Height (Feet): 4 Height (Inches): 11.00 Weight (Pounds): 165 General Appearance: lethargic EENT: normal ENT inspection Neck: normal alignment Cardiovascular: normal peripheral pulses, normal rate, regular rhythm Respiratory/Chest: decreased breath sounds Abdomen: normal bowel sounds, non tender, soft Extremities: normal inspection Edema: no edema noted Arm (L), no edema noted Arm (R), no edema noted Leg (L), no edema noted Leg (R), no edema noted Pedal (L), no edema noted Pedal (R), no edema noted Generalized Neurologic: motor weakness Skin: normal pigmentation, warm/dry ANGELES MIRAMONTES Dec 27, 2017 12:26
[2017-12-27] MEDS ORDERED: Lexiscan 0.4mg/5ml syringe IV PRN (13:00)
--- NOTE | 2017-12-27 13:02 | Cardiology Report ---
APPROVED REPORT EXAM: Two-dimensional and M-mode echocardiogram with Doppler and color Doppler. INDICATION LV FUNCTION M-Mode DIMENSIONS IVSd1.3 (0.7-1.1cm)Left Atrium (MM)3.0 (1.6-4.0cm) LVDd3.9 (3.5-5.6cm)Aortic Root3.0 (2.0-3.7cm) PWd0.9 (0.7-1.1cm)Aortic Cusp Exc.1.6 (1.5-2.0cm) IVSs1.4 cm LVDs2.6 (2.5-4.0cm) PWs1.7 cm Normal left ventricular chamber size, systolic function and wall motion . Left ventricular ejection fraction estimated to be 65-70 %. Moderate left ventricular hypertrophy. No evidence of pericardial effusion. All other cardiac chamber sizes are within normal. Focal aortic valve sclerosis with adequate cusp excursion. Thickened mitral valve leaflets with normal excursion. Mitral annulus and aortic root calcification. Pulmonic valve not well visualized. Normal tricuspid valve structure. IVC at normal size with physiologic collapse . A color flow and spectral Doppler study was performed and revealed: No aortic regurgitation. Trace mitral regurgitation. Mitral diastolic velocities suggest reduced left ventricular relaxation c/w mild LV diastolic dysfunction (Grade I ) Mild tricuspid regurgitation. Tricuspid systolic velocities suggests peak right ventricular systolic pressure of 33 mmHg,consistent with mild pulmonary hypertension. No pulmonic regurgitation present.
--- NOTE | 2017-12-27 15:02 | Cardiac Electrophysiology PN ---
Assessment/Plan Assessment/Plan 1. Cardiac arrhythmia. It is in the form of sinus arrhythmia. No evidence of atrial fibrillation, SVT, or ventricular tachycardia. Echocardiogram EF 65% 2. Chest pain. 3 troponins are negative. . Echocardiogram has already been performed that showed ejection fraction of 65% to 70%. Nuclear stress test today pending results 3. History of diabetes. 4. History of CVA. Leobardo RN Subjective Subjective Feeling better. No chest pain or SOB.Had stress test today. Objective Last 24 Hour Vital Signs Date Time Temp Pulse Resp B/P (MAP) Pulse Ox O2 Delivery O2 Flow Rate FiO2 12/27/17 12:00 97.5 80 18 137/61 100 Room Air 97.5 12/27/17 12:00 78 12/27/17 09:07 135/61 12/27/17 08:00 98.1 84 20 135/61 100 Room Air 98.1 12/27/17 08:00 87 12/27/17 07:50 87 18 Room Air 21 12/27/17 04:00 97.7 87 20 124/67 98 Room Air 97.7 12/27/17 04:00 88 12/27/17 00:00 94 12/27/17 00:00 97.9 89 20 132/54 93 Room Air 97.9 12/26/17 23:26 85 18 100 Room Air 21 12/26/17 23:18 83 20 98 Room Air 21 12/26/17 20:29 70 14 Room Air 12/26/17 20:00 98.1 96 22 109/65 100 Room Air 98.1 12/26/17 20:00 90 12/26/17 16:00 73 Intake and Output 12/26/17 12/27/17 19:00 07:00 Intake Total 500 ml Balance 500 ml Intake Oral 500 ml # Voids 4 2 Laboratory Tests Test 12/27/17 06:23 12/27/17 13:45 White Blood Count 4.9 K/UL (4.8-10.8) Red Blood Count 3.81 M/UL (4.20-5.40) L Hemoglobin 12.5 G/DL (12.0-16.0) Hematocrit 35.2 % (37.0-47.0) L Mean Corpuscular Volume 93 FL (80-99) Mean Corpuscular Hemoglobin 32.9 PG (27.0-31.0) H Mean Corpuscular Hemoglobin Concent 35.5 G/DL (32.0-36.0) Red Cell Distribution Width 10.5 % (11.6-14.8) L Platelet Count 148 K/UL (150-450) L Mean Platelet Volume 9.1 FL (6.5-10.1) Neutrophils (%) (Auto) 49.9 % (45.0-75.0) Lymphocytes (%) (Auto) 40.0 % (20.0-45.0) Monocytes (%) (Auto) 7.3 % (1.0-10.0) Eosinophils (%) (Auto) 1.8 % (0.0-3.0) Basophils (%) (Auto) 0.9 % (0.0-2.0) Prothrombin Time 10.2 SEC (9.30-11.50) Prothromb Time International Ratio 1.0 (0.9-1.1) Activated Partial Thromboplast Time 27 SEC (23-33) Troponin I 0.003 ng/mL (0.000-0.056) 0.000 ng/mL (0.000-0.056) C-Reactive Protein, Quantitative < 0.4 mg/dL (0.00-0.90) Pro-B-Type Natriuretic Peptide 57 pg/mL (0-125) Triglycerides Level 105 MG/DL (30-150) Cholesterol Level 168 MG/DL (< 200) LDL Cholesterol 98 mg/dL (<100) HDL Cholesterol 58 MG/DL (40-60) Cholesterol/HDL Ratio 2.9 (3.3-4.4) L Thyroid Stimulating Hormone (TSH) 1.667 uiU/mL (0.358-3.740) Free Thyroxine 1.43 NG/DL (0.76-1.46) Objective HEAD AND NECK: Showed no JVD. LUNGS: Clear. CARDIOVASCULAR: Shows irregular S1 and S2 with no gallop or murmur. ABDOMEN: Soft. EXTREMITIES: No pitting edema. NEUROLOGIC: She has right hemiparesis. ZION PELAEZ Dec 27, 2017 15:02
--- NOTE | 2017-12-27 15:28 | Diagnostic Imaging Report ---
Indications: Chest pain Technique: Single day single isotope protocol utilized. Initially, resting images obtained using IV administration 10.7 millicuries 99M technetium Myoview. Subsequently, patient underwent lexiscan stress testing. See cardiology report for details. During adenosine infusion, IV administration 31.8 mCi 99 M technetium Myoview. SPECT and planar images obtained. SPECT images gated to 8 phases of the cardiac cycle were also obtained, and reformatted into cine images for evaluation of ejection fraction. Comparison: none Findings: Presence or absence of symptoms during the infusion is not described on the cardiology report. Per cardiology report, resting EKG demonstrates normal sinus rhythm with inferior SC. Presence or absence of ST changes is not described on the cardiology report. Imaging demonstrates normal flow stress perfusion, no fixed or reversible perfusion defects. Normal cardiac chamber size.. Calculated post stress ejection fraction 76%. No wall motion abnormality Impression: Nonischemic clinical response to pharmacologic stress, per cardiology report Nonischemic electrocardiographic response to pharmacologic stress, per cardiology report No imaging findings to suggest ischemia, at level of stress achieved. Calculated post stress ejection fraction greater than 70%
[2017-12-27 16:00] VITALS: BP_SYST 113; BP_SYST 122; BP_DIAS 54; BP_DIAS 67
--- NOTE | 2017-12-27 18:15 | Consultation ---
DATE OF CONSULTATION: 12/27/2017 INFECTIOUS DISEASES CONSULTATION PRIMARY ATTENDING PHYSICIAN: Glenn Hurtado D.O. REASON FOR CONSULTATION: UTI. HISTORY OF PRESENT ILLNESS: The patient is an 87-year-old female, admitted yesterday from home mainly because of chest pain that started while the patient was sleeping, has some shortness of breath. The patient was admitted for rule out of acute coronary syndrome. PAST MEDICAL HISTORY: Significant for diabetes mellitus type 2, hypertension, and since the patient have a CVA with right-sided weakness one month ago, the patient cannot walk since then. MEDICATIONS: Losartan, aspirin, Protonix, heparin, insulin, albuterol, ipratropium inhaler, nitroglycerin, Tylenol, Toradol, morphine, polyethylene glycol, temazepam, Vasotec, and diltiazem. ALLERGIES: No known drug allergies. SOCIAL HISTORY: Lives at home. Single. No history of alcohol, drug abuse, or smoking. REVIEW OF SYSTEMS: No fever. No chills. No coughing. No shortness of breath. The patient has no pain at the chest at the present time. She had constipation. No nausea. No vomiting. She has decrease in urine output because of drinking less water. She has some hearing loss and numbness in the right side of the body. PHYSICAL EXAMINATION: GENERAL APPEARANCE: No acute distress. VITAL SIGNS: Temperature 98.1 degrees, pulse 84, and blood pressure 135/61. HEAD AND NECK: [place] conjunctivae. She has dentures. No oral lesion. HEART: S1 and S2. Normal rate. LUNGS: Clear. ABDOMEN: Soft and nontender. EXTREMITIES: No edema. LABORATORY AND DIAGNOSTIC DATA: WBC 4.9, hemoglobin 12.5, hematocrit 35.2 and platelet 148. Sodium 131, potassium 4.1, chloride 95, bicarbonate 27, glucose 127, BUN 16, and creatinine 0.8. Troponins x2 were negative. UA showed WBCs of 2 to 4 and leukocyte esterase was positive 1+. IMPRESSION: Chest pain rule out acute coronary syndrome. The patient had a positive leukocyte esterase test in urine, but does not have any symptoms and signs of urinary tract infection. She has diabetes mellitus, hypertension, and history of recent cerebrovascular accident. RECOMMENDATION: We will observe off antibiotic. At the end of my exam, I thank Dr. Glenn Hurtado, for involving me in the care of this patient. Norman Potter M.D. DR: RACHEL JOB#: [id number] CC:
[2017-12-27 20:00] VITALS: BP 116/56
--- NOTE | 2017-12-27 20:06 | Cardiology Progress Note ---
Assessment/Plan Problem List: (1) Diabetes mellitus (2) HTN (hypertension) (3) ACS (acute coronary syndrome) Status: stable, progressing Status Narrative chest pain - resolved Stress nuclear study is negative for ischemia. EF nl by gated spect. ECHO w/ normal LV function and aortic sclerosis, without stenosis Assessment/Plan Continue medical therapy for HTN. Ischemia w/u negative -- medical management, coronary risk factor reduction Subjective ROS Limited/Unobtainable: No Subjective Cardiology for Dr. Wayne Pt denies chest pain. Mild dyspnea. Objective Last 24 Hour Vital Signs Date Time Temp Pulse Resp B/P (MAP) Pulse Ox O2 Delivery O2 Flow Rate FiO2 12/27/17 16:00 96.4 90 18 113/54 100 Room Air 96.4 12/27/17 16:00 79 12/27/17 12:00 97.5 80 18 137/61 100 Room Air 97.5 12/27/17 12:00 78 12/27/17 09:07 135/61 12/27/17 08:00 98.1 84 20 135/61 100 Room Air 98.1 12/27/17 08:00 87 12/27/17 07:50 87 18 Room Air 21 12/27/17 04:00 97.7 87 20 124/67 98 Room Air 97.7 12/27/17 04:00 88 12/27/17 00:00 94 12/27/17 00:00 97.9 89 20 132/54 93 Room Air 97.9 12/26/17 23:26 85 18 100 Room Air 21 12/26/17 23:18 83 20 98 Room Air 21 12/26/17 20:29 70 14 Room Air General Appearance: WD/WN, no apparent distress, alert EENT: PERRL/EOMI Neck: supple, no JVD Rhythm: NSR Cardiovascular: normal rate, regularly irregular, systolic murmur - ii/vi EVANGELINA R second ICS Respiratory/Chest: lungs clear - clear anteriorly Abdomen: non tender, soft Extremities: no swelling Intake and Output 12/26/17 12/27/17 19:00 07:00 Intake Total 500 ml Balance 500 ml Intake Oral 500 ml # Voids 4 2 Laboratory Tests Test 12/27/17 06:23 12/27/17 13:45 White Blood Count 4.9 K/UL (4.8-10.8) Red Blood Count 3.81 M/UL (4.20-5.40) L Hemoglobin 12.5 G/DL (12.0-16.0) Hematocrit 35.2 % (37.0-47.0) L Mean Corpuscular Volume 93 FL (80-99) Mean Corpuscular Hemoglobin 32.9 PG (27.0-31.0) H Mean Corpuscular Hemoglobin Concent 35.5 G/DL (32.0-36.0) Red Cell Distribution Width 10.5 % (11.6-14.8) L Platelet Count 148 K/UL (150-450) L Mean Platelet Volume 9.1 FL (6.5-10.1) Neutrophils (%) (Auto) 49.9 % (45.0-75.0) Lymphocytes (%) (Auto) 40.0 % (20.0-45.0) Monocytes (%) (Auto) 7.3 % (1.0-10.0) Eosinophils (%) (Auto) 1.8 % (0.0-3.0) Basophils (%) (Auto) 0.9 % (0.0-2.0) Prothrombin Time 10.2 SEC (9.30-11.50) Prothromb Time International Ratio 1.0 (0.9-1.1) Activated Partial Thromboplast Time 27 SEC (23-33) Troponin I 0.003 ng/mL (0.000-0.056) 0.000 ng/mL (0.000-0.056) C-Reactive Protein, Quantitative < 0.4 mg/dL (0.00-0.90) Pro-B-Type Natriuretic Peptide 57 pg/mL (0-125) Triglycerides Level 105 MG/DL (30-150) Cholesterol Level 168 MG/DL (< 200) LDL Cholesterol 98 mg/dL (<100) HDL Cholesterol 58 MG/DL (40-60) Cholesterol/HDL Ratio 2.9 (3.3-4.4) L Thyroid Stimulating Hormone (TSH) 1.667 uiU/mL (0.358-3.740) Free Thyroxine 1.43 NG/DL (0.76-1.46) VAUGHN WEBSTER Dec 27, 2017 20:06
[2017-12-28] VITALS: BP 116/80
[2017-12-28 04:00] VITALS: BP 143/73
[2017-12-28] MEDS: Heparin 5000 units/ml inj SUBQ SCH (05:57)
[2017-12-28] MEDS: NovoLOG Insulin Flexpen SUBQ SCH ×2 (05:57→11:30)
[2017-12-28 08:00] VITALS: BP 125/54
[2017-12-28 08:29] LABS: BASOPHILS % (AUTO) 0.7 % (0.0-2.0); EOSINOPHILS % (AUTO) 2.1 % (0.0-3.0); HEMATOCRIT 35.9 % (37.0-47.0); HEMOGLOBIN 12.8 G/DL (12.0-16.0); LYMPHOCYTES % (AUTO) 39.4 % (20.0-45.0); MEAN CORPUSCULAR VOLUME 93 FL (80-99); MONOCYTES % (AUTO) 7.1 % (1.0-10.0); NEUTROPHILS % (AUTO) 50.7 % (45.0-75.0); PLATELET COUNT 140 K/UL (150-450); RED BLOOD COUNT 3.85 M/UL (4.20-5.40); RED CELL DISTRIBUTION WIDTH 10.6 % (11.6-14.8)
--- NOTE | 2017-12-28 08:32 | Pulmonology Progress Note ---
Assessment/Plan Problems: (1) ACS (acute coronary syndrome) (2) HTN (hypertension) (3) Diabetes mellitus Assessment/Plan f/u stress test studies negative sliding scale symptomatic treatment dc home if stress test is negative. dvt prophylaxis. dc home today Subjective Interval Events: doing better Allergies: Coded Allergies: No Known Allergies (Unverified , 12/26/17) Objective Last 24 Hour Vital Signs Date Time Temp Pulse Resp B/P (MAP) Pulse Ox O2 Delivery O2 Flow Rate FiO2 12/28/17 04:00 76 12/28/17 04:00 97.7 84 18 143/73 96 97.7 12/28/17 00:00 68 12/28/17 00:00 97.0 90 18 116/80 97 97.0 12/27/17 20:00 97.9 79 18 116/56 97 97.9 12/27/17 20:00 77 12/27/17 16:00 96.4 90 18 113/54 100 Room Air 96.4 12/27/17 16:00 79 12/27/17 12:00 97.5 80 18 137/61 100 Room Air 97.5 12/27/17 12:00 78 12/27/17 09:07 135/61 Intake and Output 12/27/17 12/28/17 19:00 07:00 Intake Total 230 ml 240 ml Output Total 2 ml Balance 228 ml 240 ml Intake Oral 230 ml 240 ml Output Stool Total 2 ml # Voids 5 2 Objective General Appearance: WD/WN, no apparent distress Lines, tubes and drains: peripheral HEENT: normocephalic, atraumatic Neck: non-tender, supple Respiratory/Chest: chest wall non-tender, lungs clear Cardiovascular/Chest: normal peripheral pulses, normal rate Abdomen: normal bowel sounds, non tender Genitourinary/Rectal: normal genital exam Skin Exam: normal pigmentation Laboratory Tests 12/27/17 13:45: Troponin I 0.000 12/28/17 07:55: Troponin I [Pending], White Blood Count 5.0, Red Blood Count 3.85L, Hemoglobin 12.8, Hematocrit 35.9L, Mean Corpuscular Volume 93, Mean Corpuscular Hemoglobin 33.2H, Mean Corpuscular Hemoglobin Concent 35.6, Red Cell Distribution Width 10.6L, Platelet Count 140L, Mean Platelet Volume 9.3, Neutrophils (%) (Auto) 50.7, Lymphocytes (%) (Auto) 39.4, Monocytes (%) (Auto) 7.1, Eosinophils (%) ( Auto) 2.1, Basophils (%) (Auto) 0.7, Erythrocyte Sedimentation Rate [Pending], Sodium Level [Pending], Potassium Level [Pending], Chloride Level [Pending], Carbon Dioxide Level [Pending], Blood Urea Nitrogen [Pending], Creatinine [ Pending], Estimat Glomerular Filtration Rate [Pending], Glucose Level [Pending] , Calcium Level [Pending], Phosphorus Level [Pending], Magnesium Level [Pending] , Total Bilirubin [Pending], Aspartate Amino Transf (AST/SGOT) [Pending], Alanine Aminotransferase (ALT/SGPT) [Pending], Alkaline Phosphatase [Pending], Total Protein [Pending], Albumin [Pending], Globulin [Pending] Current Medications Medications (Trade) Dose Ordered Sig/Bella Route PRN Reason Start Time Stop Time Status Last Admin Dose Admin Acetaminophen (Tylenol) 650 mg Q4H PRN ORAL FEVER 12/26/17 10:15 01/25/18 10:14 Albuterol/ Ipratropium (Albuterol/ Ipratropium) 3 ml EVERY 4 HOURS PRN HHN Shortness of Breath 12/26/17 10:15 12/31/17 10:14 12/26/17 23:17 Aspirin (ASA) 162 mg DAILY ORAL 12/27/17 09:00 01/26/18 08:59 12/27/17 09:07 Dextrose (Dextrose 50%) STAT PRN IV Hypoglycemia 12/26/17 10:15 01/25/18 10:14 Diltiazem HCl (Cardizem) 10 mg EVERY HOUR PRN IV heart rate more than 120, 12/26/17 10:15 01/25/18 10:14 Enalaprilat (Vasotec) 2.5 mg EVERY 6 HOURS PRN IV sbp more than 160 12/26/17 10:15 01/25/18 10:14 Heparin Sodium (Porcine) (Heparin 5000 units/ml) 5,000 units EVERY 8 HOURS SUBQ 12/26/17 14:00 01/25/18 13:59 12/27/17 13:47 Insulin Aspart (NovoLOG) BEFORE MEALS AND HS SUBQ 12/26/17 11:30 01/25/18 11:29 Ketorolac Tromethamine (Toradol 30mg) 30 mg Q6HR PRN IV moderate pain ( 4-6) 12/26/17 10:15 12/31/17 10:14 Losartan Potassium (Cozaar) 50 mg DAILY ORAL 12/27/17 09:00 01/26/18 08:59 12/27/17 09:07 Morphine Sulfate (Morphine Sulfate) 2 mg EVERY 4 HOURS PRN IVP severe Pain (Pain Scale 7-10) 12/26/17 10:15 01/02/18 10:14 Nitroglycerin (Ntg) 0.4 mg Q5M PRN SL Prn Chest Pain 12/26/17 10:15 01/25/18 10:14 Ondansetron HCl (Zofran) 4 mg Q6H PRN IVP Nausea & Vomiting 12/26/17 10:15 01/25/18 10:14 Pantoprazole (Protonix) 40 mg DAILY ORAL 12/27/17 09:00 01/26/18 08:59 12/27/17 09:07 Polyethylene Glycol (Miralax) 17 gm DAILYPRN PRN ORAL Constipation 12/26/17 10:15 01/25/18 10:14 12/27/17 15:54 Temazepam (Restoril) 15 mg HSPRN PRN ORAL Insomnia 12/26/17 10:15 01/02/18 10:14 CALVIN TAM Dec 28, 2017 08:32
--- NOTE | 2017-12-28 08:41 | General Progress Note ---
Assessment/Plan Problem List: (1) Diabetes mellitus ICD Codes: E11.9 - Type 2 diabetes mellitus without complications SNOMED: 78757744 (2) HTN (hypertension) ICD Codes: I10 - Essential (primary) hypertension SNOMED: 72783174 (3) ACS (acute coronary syndrome) ICD Codes: I24.9 - Acute ischemic heart disease, unspecified SNOMED: 606076983 Status: stable, progressing, tolerating diet Assessment/Plan oe pulm tx abx bp bs control cbc bmp am, dave frazieru vicente dc plan Subjective Constitutional: Reports: weakness Allergies: Coded Allergies: No Known Allergies (Unverified , 12/26/17) All Systems: reviewed and negative except above Subjective sleepy in bed Objective Last 24 Hour Vital Signs Date Time Temp Pulse Resp B/P (MAP) Pulse Ox O2 Delivery O2 Flow Rate FiO2 12/28/17 04:00 76 12/28/17 04:00 97.7 84 18 143/73 96 97.7 12/28/17 00:00 68 12/28/17 00:00 97.0 90 18 116/80 97 97.0 12/27/17 20:00 97.9 79 18 116/56 97 97.9 12/27/17 20:00 77 12/27/17 16:00 96.4 90 18 113/54 100 Room Air 96.4 12/27/17 16:00 79 12/27/17 12:00 97.5 80 18 137/61 100 Room Air 97.5 12/27/17 12:00 78 12/27/17 09:07 135/61 Intake and Output 12/27/17 12/28/17 19:00 07:00 Intake Total 230 ml 240 ml Output Total 2 ml Balance 228 ml 240 ml Intake Oral 230 ml 240 ml Output Stool Total 2 ml # Voids 5 2 Laboratory Tests 12/27/17 13:45: Troponin I 0.000 12/28/17 07:55: Troponin I [Pending], White Blood Count 5.0, Red Blood Count 3.85L, Hemoglobin 12.8, Hematocrit 35.9L, Mean Corpuscular Volume 93, Mean Corpuscular Hemoglobin 33.2H, Mean Corpuscular Hemoglobin Concent 35.6, Red Cell Distribution Width 10.6L, Platelet Count 140L, Mean Platelet Volume 9.3, Neutrophils (%) (Auto) 50.7, Lymphocytes (%) (Auto) 39.4, Monocytes (%) (Auto) 7.1, Eosinophils (%) ( Auto) 2.1, Basophils (%) (Auto) 0.7, Erythrocyte Sedimentation Rate [Pending], Sodium Level [Pending], Potassium Level [Pending], Chloride Level [Pending], Carbon Dioxide Level [Pending], Blood Urea Nitrogen [Pending], Creatinine [ Pending], Estimat Glomerular Filtration Rate [Pending], Glucose Level [Pending] , Calcium Level [Pending], Phosphorus Level [Pending], Magnesium Level [Pending] , Total Bilirubin [Pending], Aspartate Amino Transf (AST/SGOT) [Pending], Alanine Aminotransferase (ALT/SGPT) [Pending], Alkaline Phosphatase [Pending], Total Protein [Pending], Albumin [Pending], Globulin [Pending] Height (Feet): 4 Height (Inches): 11.00 Weight (Pounds): 165 General Appearance: lethargic EENT: PERRL/EOMI Neck: normal alignment Cardiovascular: normal peripheral pulses, normal rate, regular rhythm Respiratory/Chest: chest wall non-tender, lungs clear, normal breath sounds Abdomen: normal bowel sounds, non tender, soft Extremities: normal inspection Edema: no edema noted Arm (L), no edema noted Arm (R), no edema noted Leg (L), no edema noted Leg (R), no edema noted Pedal (L), no edema noted Pedal (R), no edema noted Generalized Neurologic: responsive, motor weakness Skin: normal pigmentation, warm/dry ANGELES MIRAMONTES Dec 28, 2017 08:41
[2017-12-28 08:44] LABS: ALANINE AMINOTRANSFERASE 43 U/L (12-78); ALBUMIN 3.4 G/DL (3.4-5.0); ALBUMIN/GLOBULIN RATIO 1.1 (1.0-2.7); ALKALINE PHOSPHATASE 86 U/L (46-116); ANION GAP 8 mmol/L (5-15); ASPARTATE AMINO TRANSFERASE 31 U/L (15-37); BILIRUBIN,TOTAL 0.8 MG/DL (0.2-1.0); BLOOD UREA NITROGEN 21 mg/dL (7-18); CARBON DIOXIDE 28 MMOL/L (21-32); CHLORIDE 101 MMOL/L (98-107); CREATININE 0.8 MG/DL (0.55-1.30); PHOSPHORUS 3.7 MG/DL (2.5-4.9); POTASSIUM 3.9 MMOL/L (3.5-5.1); SODIUM 136 MMOL/L (136-145)
[2017-12-28 09:00] VITALS: BP 125/54
[2017-12-28] MEDS: Losartan 50mg tab ORAL SCH (09:00)
[2017-12-28] MEDS: Aspirin Baby 81mg ORAL SCH (09:08)
--- NOTE | 2017-12-29 15:36 | Cardiology Report ---
APPROVED REPORT EKG Measurement Heart [id number] Normal sinus rhythm Inferior infarct, age undetermined Abnormal ECG
--- NOTE | 2017-12-30 13:48 | Discharge Summary ---
Discharge Summary Hospital Course Date of Admission Dec 26, 2017 at 07:41 Date of Discharge Dec 28, 2017 at 13:49 Admitting Diagnosis ACUTE CORONARY SYNDROME HPI Callum Lares is a 87 year old female who was admitted on Dec 26, 2017 at 07:41 for Acute Coronary Syndrome Hospital Course dc summary #[id number] Discharge Medications Continued Medications: Aspirin Ec* (Aspirin Ec*) 81 Mg Tablet.dr 81 MG ORAL DAILY, TAB Losartan Potassium* (Losartan Potassium*) 50 Mg Tablet 50 MG ORAL DAILY, TAB Discharge Condition Upon Discharge: stable Discharge Disposition Patient was discharged to Home (01) Discharge Diagnoses: Discharge Instructions Discharge Instructions Special Instructions I have been assigned to complete a D/C Summary on this account. I was not involved in the patient management Renetta Rodríguez NP (Vanchtein) Dec 30, 2017 13:48
--- NOTE | 2017-12-30 23:00 | Discharge Summary 2 SIG ---
DATE OF ADMISSION: 12/26/2017 DATE OF DISCHARGE: 12/28/2017 REASON FOR ADMISSION: 87-year-old female with a history of hypertension, diabetes, and CVA, presented to emergency department for evaluation of chest pain. Troponin was negative. EKG showed Q-wave in lead III and aVF with normal sinus rhythm. . The patient was treated with aspirin. Chest x-ray was negative for acute cardiopulmonary pathology. No leukocytosis. First troponin negative. Urinalysis negative. ProBNP -64. The patient was admitted with diagnosis of chest pain, rule out acute coronary syndrome. HOSPITAL COURSE: The patient was admitted to telemetry floor. Cardiology consult was requested. The patient was started on the aspirin. According to agricultural commodities inspector, the patient had atypical chest pain, likely pleuritic. Echocardiogram revealed preserved ejection fraction of 65% to 70% and right ventricular systolic pressure of 33 consistent with mild pulmonary hypertension. No aortic stenosis, but some aortic sclerosis noted. The patient undergone stress test in view of the hypertension and diabetes. Stress test was nonischemic. Venous duplex of bilateral lower extremities was negative. Calculated ejection fraction on cardiac stress test was 70%. Blood pressure was managed with DOT inhibitor and ARB. No beta-makenna or amlodipine prior to the stress test. Cardiac licensed tax consultant seen the patient for cardiac arrhythmia. According to licensed tax consultant, the patient had a sinus rhythm and no further workup was necessary. Blood sugar was managed with sliding scale of insulin. The patient was on aspirin and statin. Lipid panel revealed normal LDL, cholesterol , and triglycerides. Serial troponin x4 were negative. EKG revealed no acute ischemic changes. The patient was ruled out for acute myocardiac infarction. According to agricultural commodities inspector, stress test was negative for ischemia with a normal ejection fraction by Gated SPECT. The agricultural commodities inspector recommended medical therapy for hypertension and medical management for hypertension and diabetes with coronary risk factor reduction. The patient was stable for discharge. FINAL DIAGNOSES: 1. Atypical chest pain, likely pleuritic. 2. Diabetes mellitus. 3. Hypertension. 4. Cardiac arrhythmia,/ sinus arrhythmia. DISCHARGE MEDICATIONS: See medication reconciliation list. DISCHARGE INSTRUCTIONS: The patient was discharged home. Follow up with the primary care provider next week. Family and the patient was advised on need to comply with the medication regimen as well as the reduction of cardiac risk factors. Glenn Hurtado D.O. I have been assigned to dictate discharge summary on this account and I was not involved in the patient's management. Renetta Rodríguez N.P. (vanchtein) DR: KEISHA JOB#: [id number] CC: [id number]
--- NOTE | 2018-01-01 13:07 | Diagnostic Imaging Report ---
APPROVED REPORT CPT Code: 86794 Present Symptoms Comments: R/O DVT Comments Technically difficult visualization due patients inability to position legs. BILATERAL: Imaging reveals a patent deep venous system bilaterally. There is no evidence of thrombus within the femoral, popliteal or tibial segments. The greater saphenous veins are also within normal limits. Doppler indicates normal spontaneous flow within these segments.
== END 2017-12-28 13:49 | disposition home or self-care (01) | DRG 144 ==
LOC: EDBD 05:52 → EMR 06:11 → 2E 07:41 → EDBEDREQ 07:52
DX: R07.81 Pleurodynia (principal); I69.351 Hemiplegia and hemiparesis following cerebral infarction affecting right dominant side; E11.9 Type 2 diabetes mellitus without complications; I10 Essential (primary) hypertension; I49.9 Cardiac arrhythmia, unspecified; Z79.4 Long term (current) use of insulin; R26.2 Difficulty in walking, not elsewhere classified
CPT/HCPCS: 36415; 71045; 78452; 80053; 80061; 81003; 82962; 83735; 83880; 84100; 84439; 84443; 84484; 85025; 85610; 85651; 85730; 86140; 93005; 93017; 93306; 93970; 94640; 94664; 97803; 99285; J1815; J2785; J7620